=== PATIENT | male | born 1960 | race Caucasian/White ===

== ENCOUNTER 2018-01-06 08:09 | Emergency (ER) | payer BC ==
[~2018-01-06] VITALS: Ht 175.3 cm; Wt 108.2 kg
[~2018-01-06 08:09] MED LIST: HYGROTON 2525 MG/TAB PO
[2018-01-06 08:16] VITALS: TEMP 98.7
[2018-01-06 08:57] LABS: BASO % 0.3 % (0.0-2.0); EOS # 0.1 (0.0-0.7); EOS % 1.5 % (0-4.0); GRAN # 5.2 (1.4-6.5); GRAN % 69.6 % (42.2-75.2); HEMATOCRIT 40.8 % (42.0-52.0); HEMOGLOBIN 13.9 g/dl (13.5-18.0); LYMPH # 1.6 (1.2-3.4); LYMPH % 21.5 % (20.0-51.0); MEAN CELL VOLUME 84 fl (80.0-100.0); MEAN CORPUSCULAR HEMOGLOBIN 29 pg (27.0-31.0); MEAN CORPUSCULAR HGB CONC 34 g/dl (33.0-37.0); MEAN PLATELET VOLUME 10.5 fl (7.4-10.4); MONO # 0.5 (0.1-0.6); MONO % 6.7 % (1.7-9.3); PLATELET COUNT 148 K/mm3 (130-400); RED BLOOD COUNT 4.84 M/mm3 (4.20-5.60); REDCELL DISTRIBUTION WIDTH-CV 13.7 % (11.5-14.5)
[2018-01-06 09:07] LABS: ALANINE AMINOTRANSFERASE 45 U/L (21-72); ALBUMIN 3.9 gm/dL (3.5-5.0); ALKALINE PHOSPHATASE 82 U/L (50-136); ANION GAP 13 mmol/L (7-16); AST,SGOT 27 U/L (15-37); BILIRUBIN,TOTAL 0.8 mg/dL (0.0-1.0); BLOOD UREA NITROGEN 22 mg/dL (9-20); CALCIUM 8.4 mg/dL (8.4-10.2); CARBON DIOXIDE 25 mmol/L (22-30); CHLORIDE 105 mmol/L (98-107); CREATININE, serum 1.07 mg/dL (0.66-1.25); GLUCOSE 127 mg/dL (74-106); LIPASE 56 U/L (23-300); POTASSIUM 3.4 mmol/L (3.4-5.0); SODIUM 143 mmol/L (137-145); TOTAL PROTEIN 6.9 gm/dL (6.4-8.2)
[2018-01-06 09:19] LABS: TROPONIN-I < 0.012 ng/mL (0.000-0.034)
[2018-01-06 09:57] LABS: COLLECTION METHOD CLEAN CATCH
[2018-01-06] MEDS ORDERED: ZOFRAN ODT4 MG PO (10:01)
[2018-01-06 10:03] LABS: MUCOUS Present /lpf; PH 7 (5-8); SQUAMOUS EPITHELIAL None Seen /hpf; URINE APPEARANCE Clear; URINE BACTERIA None Seen /hpf; URINE BILIRUBIN Negative (NEGATIVE); URINE BLOOD Negative (NEGATIVE); URINE COLOR Yellow; URINE GLUCOSE Negative (NEGATIVE); URINE KETONE Trace (NEGATIVE); URINE LEUKOCYTE ESTERASE Negative (NEGATIVE); URINE NITRATE Negative (NEGATIVE); URINE PROTEIN(semi-quant) Negative (NEGATIVE); URINE RBC 0-2 /hpf; URINE UROBILINOGEN Negative (NEGATIVE)
[2018-01-06 10:50] VITALS: BP 129/69; PULSE 58
== END 2018-01-06 10:50 | disposition home or self-care (01) ==
LOC: COL.ER 08:09
PROVIDERS: Physician Assistant
DX: R11.2 Nausea with vomiting, unspecified (principal); R19.7 Diarrhea, unspecified; R12 Heartburn
CPT/HCPCS: J2405; J2550; J7030

== ENCOUNTER 2018-05-17 15:32 | Emergency (ER) | payer BC ==
[~2018-05-17 15:32] MED LIST changes: +ZOFRAN ODT4 MG PO
[2018-05-17 16:09] LABS: BASO % 0.3 % (0.0-2.0); EOS # 0.2 (0.0-0.7); EOS % 1.9 % (0-4.0); GRAN # 5.8 (1.4-6.5); GRAN % 62.7 % (42.2-75.2); HEMATOCRIT 40.2 % (42.0-52.0); HEMOGLOBIN 13.4 g/dl (13.5-18.0); LYMPH # 2.6 (1.2-3.4); LYMPH % 28.2 % (20.0-51.0); MEAN CELL VOLUME 83 fl (80.0-100.0); MEAN CORPUSCULAR HEMOGLOBIN 28 pg (27.0-31.0); MEAN CORPUSCULAR HGB CONC 33 g/dl (33.0-37.0); MEAN PLATELET VOLUME 10.1 fl (7.4-10.4); MONO # 0.6 (0.1-0.6); MONO % 6.7 % (1.7-9.3); PLATELET COUNT 182 K/mm3 (130-400); RED BLOOD COUNT 4.86 M/mm3 (4.20-5.60); REDCELL DISTRIBUTION WIDTH-CV 14.6 % (11.5-14.5)
[2018-05-17 16:20] LABS: ALANINE AMINOTRANSFERASE 48 U/L (21-72); ALBUMIN 3.9 gm/dL (3.5-5.0); ALKALINE PHOSPHATASE 63 U/L (50-136); ANION GAP 11 mmol/L (7-16); AST,SGOT 30 U/L (15-37); BILIRUBIN,TOTAL 0.4 mg/dL (0.0-1.0); BLOOD UREA NITROGEN 28 mg/dL (9-20); CALCIUM 8.7 mg/dL (8.4-10.2); CARBON DIOXIDE 34 mmol/L (22-30); CHLORIDE 96 mmol/L (98-107); CREATININE, serum 1.24 mg/dL (0.66-1.25); GLUCOSE 91 mg/dL (74-106); SODIUM 140 mmol/L (137-145); TOTAL PROTEIN 6.9 gm/dL (6.4-8.2)
[2018-05-17 16:36] LABS: POTASSIUM 2.8 mmol/L (3.4-5.0); TROPONIN-I < 0.012 ng/mL (0.000-0.034)
[2018-05-17] MEDS ORDERED: HYGROTON 2525 MG/TAB PO (17:12)
[2018-05-17] MEDS ORDERED: K-TAB20 PO (17:54)
[2018-05-17 19:10] VITALS: BP 121/81; PULSE 59
== END 2018-05-17 19:10 | disposition home or self-care (01) ==
LOC: COL.ER 15:32
PROVIDERS: Emergency Medicine
DX: E87.6 Hypokalemia (principal); E87.3 Alkalosis; R07.89 Other chest pain; R06.00 Dyspnea, unspecified; I10 Essential (primary) hypertension; D64.9 Anemia, unspecified
CPT/HCPCS: J3480